=== PATIENT | male | born 1945 | race Caucasian/White ===

== ENCOUNTER → 2024-11-07 | Outpatient (REF) | payer MEDICARE, BC ==
[~2024-11-07] MED LIST: IOPAMIDOL 370 MG/ML 100 ML INFUS..BTL INJ ONE; SODIUM CHLORIDE 0.9% 500ML 500 ML ONE
[2024-11-07 16:33] LABS: EST GLOMERULAR FILTRATION RATE 49.0 ML/MIN (>=60)
== END ==
LOC: CT 15:39
PROVIDERS: ATTEND Internal Medicine Interventional Cardiology
DX: I26.99 Other pulmonary embolism without acute cor pulmonale (principal)
CPT/HCPCS: 36415; 71260; 82565; 84520; 96360; J7040; Q9967